=== PATIENT | male | born 1950 ===

== ENCOUNTER 2017-03-29 19:12 | Emergency (ER) | payer SELFPAY ==
[2017-03-29 19:26] VITALS: BP 162/105; PULSE 106; RESP 16; TEMP 98.2; O2SAT 100
[2017-03-29 20:11] LABS: BASO % 0.8 % (0.0-2.0); EOS # 0.1 K/uL (0.0-0.7); EOS % 1.6 % (0.0-4.0); HEMOGLOBIN 11.4 g/dL (12.0-18.0); LYMPH # 1.5 K/uL (1.0-4.3); LYMPH % 27.5 % (20.0-40.0); MEAN CELL VOLUME 92.4 fl (80.0-94.0); MEAN CORPUSCULAR HEMOGLOBIN 31.2 pg (27.0-31.0); MEAN CORPUSCULAR HGB CONC 33.8 g/dL (33.0-37.0); MONO # 0.5 K/uL (0.0-0.8); MONO % 8.4 % (0.0-10.0); NEUT # 3.4 K/uL (1.8-7.0); NEUT % 61.7 % (50.0-75.0); RBC 3.65 Mil/uL (4.40-5.90); RED CELL DISTRIBUTION WIDTH 14.1 % (11.5-14.5); WHITE BLOOD COUNT 5.5 K/uL (4.8-10.8)
[2017-03-29 20:24] LABS: ALB/GLOB RATIO 1.2 (1.0-2.1); ALBUMIN 4.6 g/dL (3.5-5.0); ALT/SGPT 32 U/L (21-72); AST/SGOT 28 U/L (17-59); BLOOD UREA NITROGEN 18 mg/dl (9-20); GFR AFRICAN-AMERICAN > 60; GFR NON-AFRICAN AMERICAN > 60; MAGNESIUM 1.9 MG/DL (1.6-2.3)
--- NOTE | 2017-03-29 22:00 | ED PDOC ---
HPI: Psych/Substance Abuse Time Seen by Provider: 03/29/17 19:26 Chief Complaint (Nursing): Alcohol Ingestion Chief Complaint (Provider): alcohol intoxication Past Medical History Vital Signs: Last Vital Signs Temp 98.2 F 03/29/17 19:25 Pulse 106 H 03/29/17 19:25 Resp 16 03/29/17 19:25 BP 162/105 H 03/29/17 19:25 Pulse Ox 100 03/29/17 19:25 - Allergies Allergies/Adverse Reactions: Allergies Allergy/AdvReac Type Severity Reaction Status Date / Time No Known Allergies Allergy Verified 11/10/16 20:52 - Laboratory Results Result Diagrams: 03/29/17 20:00 03/29/17 20:00 - ECG O2 Sat by Pulse Oximetry: 100 Disposition - Clinical Impression Clinical Impression: Alcohol abuse with intoxication - Disposition Referrals: Alcoholics Anonymous [Outside] Disposition: Routine/Home Disposition Time: 17:00 Condition: IMPROVED Instructions: Alcohol Intoxication (ED) Print Language: LATVIAN
== END 2017-03-30 06:05 | disposition home or self-care (01) ==
LOC: H.ER 19:12
DX: F10.129 Alcohol abuse with intoxication, unspecified (principal)
CPT/HCPCS: 80053; 83735; 84100; 85025; 96372; 99282; G0480; J1630; J2060

== ENCOUNTER 2018-01-07 21:45 | Emergency (ER) | payer MEDICARE ==
--- NOTE | 2018-01-07 22:22 | ED PDOC ---
HPI: Psych/Substance Abuse Time Seen by Provider: 01/07/18 22:01 Chief Complaint (Nursing): Alcohol Ingestion Chief Complaint (Provider): ETOH History Per: EMS Additional Complaint(s): 67 y/o male brought in by EMS for evaluation of acute alcohol intoxication. 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 Patient awake, slurred speech Past Medical History Reviewed: Historical Data, Nursing Documentation, Vital Signs Vital Signs: Last Vital Signs Temp 98.1 F 01/07/18 21:49 Pulse 104 H 01/07/18 21:49 Resp 20 01/07/18 21:49 BP 118/81 01/07/18 21:49 Pulse Ox 97 01/07/18 21:49 - Medical History PMH: No Chronic Diseases - Family History Family History: States: Unknown Family Hx - Allergies Allergies/Adverse Reactions: Allergies Allergy/AdvReac Type Severity Reaction Status Date / Time No Known Allergies Allergy Verified 01/07/18 21:49 Review of Systems ROS Statement: Except As Marked, All Systems Reviewed And Found Negative Physical Exam - Reviewed Nursing Documentation Reviewed: Yes Vital Signs Reviewed: Yes - Physical Exam Appears: Positive for: Well, Non-toxic, No Acute Distress Head Exam: Positive for: ATRAUMATIC, NORMAL INSPECTION, NORMOCEPHALIC Skin: Positive for: Normal Color - ECG O2 Sat by Pulse Oximetry: 97 Disposition - Disposition Forms: [place] (Taiwanese)
--- NOTE | 2018-01-07 23:00 | ED PDOC ---
HPI: Psych/Substance Abuse Time Seen by Provider: 01/07/18 22:01 Chief Complaint (Nursing): Alcohol Ingestion Chief Complaint (Provider): etoh History Per: EMS Additional Complaint(s): 76 y/o male brought in by EMS for alcohol intoxication. Patient well known to ED and provider with multiple visits for same. Past Medical History Reviewed: Historical Data, Nursing Documentation, Vital Signs Vital Signs: Last Vital Signs Temp 98.1 F 01/07/18 21:49 Pulse 104 H 01/07/18 21:49 Resp 20 01/07/18 21:49 BP 118/81 01/07/18 21:49 Pulse Ox 97 01/07/18 21:49 - Family History Family History: States: Unknown Family Hx - Home Medications Home Medications: Ambulatory Orders Medication Instructions Recorded No Known Home Med 11/02/17 - Allergies Allergies/Adverse Reactions: Allergies Allergy/AdvReac Type Severity Reaction Status Date / Time No Known Allergies Allergy Verified 01/11/18 23:13 Review of Systems ROS Statement: Except As Marked, All Systems Reviewed And Found Negative Physical Exam - Reviewed Nursing Documentation Reviewed: Yes Vital Signs Reviewed: Yes - Physical Exam Appears: Positive for: Well, Non-toxic, Uncomfortable (agitated, yelling) Head Exam: Positive for: ATRAUMATIC, NORMAL INSPECTION, NORMOCEPHALIC Skin: Positive for: Normal Color Eye Exam: Positive for: Normal appearance, Other (chronic left eye deformity) ENT: Positive for: Normal ENT Inspection Cardiovascular/Chest: Positive for: Regular Rate, Rhythm Respiratory: Positive for: Normal Breath Sounds Gastrointestinal/Abdominal: Positive for: Normal Exam Back: Positive for: Normal Inspection Extremity: Positive for: Normal ROM Neurologic/Psych: Positive for: Alert, Oriented (x3) - ECG O2 Sat by Pulse Oximetry: 97 - Progress ED Course And Treament: Patient agitated, attempting to get out of bed with unsteady gait. Patient restrained and medicated with Ativan for acute agitation/safety 01/08/18 00:00 Patient sleeping; no distress 1:30 Patient sleeping; no distress 3:00 Patient sleeping; no distress 4:30 Patient sleeping; no distress 6:00 Patient awake, alert, oriented x3. Ambulating steady gait Stable for discharge Disposition - Clinical Impression Clinical Impression: Alcohol abuse with intoxication - Patient ED Disposition Is Patient to be Admitted: No - Disposition Disposition: Routine/Home Disposition Time: 06:00 Condition: IMPROVED Instructions: Alcohol Abuse and Alcoholism (DC)
[2018-01-08 05:24] VITALS: O2SAT 97
[2018-01-08 07:02] VITALS: BP 111/62; PULSE 79; RESP 17; TEMP 97.9
== END 2018-01-08 06:45 | disposition home or self-care (01) ==
LOC: EDBD 21:45 → H.ER 21:45
DX: F10.129 Alcohol abuse with intoxication, unspecified (principal)
CPT/HCPCS: 82948; 96372; 99285; J2060

== ENCOUNTER 2018-01-11 23:07 | Emergency (ER) | payer MEDICARE, MEDICAID ==
[2018-01-11 23:07] VITALS: BMI 25.0
[2018-01-11 23:15] VITALS: RESP 16; O2SAT 98
--- NOTE | 2018-01-11 23:36 | ED PDOC ---
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 Unable to obtain history due to patient's intoxication state. PMD: non provided Past Medical History Reviewed: Historical Data, Nursing Documentation, Vital Signs Vital Signs: Last Vital Signs Temp 98.0 F 01/11/18 23:13 Pulse 114 H 01/11/18 23:13 Resp 16 01/11/18 23:13 BP 134/72 01/11/18 23:13 Pulse Ox 98 01/11/18 23:13 - Medical History PMH: Diabetes, Hypercholesterolemia - Surgical History Surgical History: No Surg Hx - Family History Family History: States: Unknown Family Hx - Home Medications Home Medications: Ambulatory Orders Medication Instructions Recorded RX: No Known Home Med 11/02/17 - Allergies Allergies/Adverse Reactions: Allergies Allergy/AdvReac Type Severity Reaction Status Date / Time No Known Allergies Allergy Verified 01/11/18 23:13 Review of Systems Review Of Systems: ROS cannot be obtained secondary to pt's inabilty to answer questions. Physical Exam - Reviewed Nursing Documentation Reviewed: Yes Vital Signs Reviewed: Yes - Physical Exam Appears: Positive for: No Acute Distress (intoxicated) Head Exam: Positive for: ATRAUMATIC, NORMOCEPHALIC Skin: Positive for: Warm, Dry Eye Exam: Positive for: Other (Left orbit consistent with pthisis bulbi) ENT: Negative for: Pharyngeal Erythema, Tonsillar Exudate Neck: Positive for: Painless ROM, Supple Cardiovascular/Chest: Positive for: Regular Rate, Rhythm. Negative for: Murmur Respiratory: Positive for: Normal Breath Sounds. Negative for: Respiratory Distress Gastrointestinal/Abdominal: Positive for: Soft. Negative for: Tenderness Back: Positive for: Normal Inspection. Negative for: Decreased ROM Extremity: Positive for: Normal ROM. Negative for: Deformity Lymphatic: Negative for: Adenopathy Neurologic/Psych: Positive for: Other (Sleepy, slurred speech and speaks nonsense statments). Negative for: Motor/Sensory Deficits - ECG O2 Sat by Pulse Oximetry: 98 (RA) Pulse Ox Interpretation: Normal Medical Decision Making Medical Decision Making: Time: 2320 Initial Impression: alcohol intoxication Initial Plan: --Alcohol serum 0000 Patient endorsed by me to Dr. Marrero, pending sobriety. Scribe Attestation: Documented by Shandra Blair, acting as a scribe for Leilani Henriquez MD. Provider Scribe Attestation: All medical record entries made by the Scribe were at my direction and personally dictated by me. I have reviewed the chart and agree that the record accurately reflects my personal performance of the history, physical exam, medical decision making, and the department course for this patient. I have also personally directed, reviewed, and agree with the discharge instructions and disposition. Disposition - Clinical Impression Clinical Impression: Alcohol intoxication - Disposition Disposition: Transfer of Care Disposition Time: 00:00 Condition: STABLE Patient Signed Over To: Trav Marrero Handoff Comments: Pending sobriety
--- NOTE | 2018-01-12 00:05 | ED PDOC ---
- ECG O2 Sat by Pulse Oximetry: 98 (RA) Pulse Ox Interpretation: Normal Medical Decision Making Medical Decision Makin Patient endorsed to me by Dr. Henriquez, pending sobriety. 6 am pt awake alert, stable gait, in no distress tolerated po stable for dc instructed on outpt follow up Scribe Attestation: Documented by Shandra Blair, acting as a scribe for Bonilla MD. Provider Scribe Attestation: All medical record entries made by the Scribe were at my direction and personally dictated by me. I have reviewed the chart and agree that the record accurately reflects my personal performance of the history, physical exam, medical decision making, and the department course for this patient. I have also personally directed, reviewed, and agree with the discharge instructions and disposition. Disposition - Clinical Impression Clinical Impression: Alcohol intoxication - POA Present On Arrival: None - Disposition Disposition: Routine/Home Disposition Time: 06:00 Condition: IMPROVED Additional Instructions: follow up with your primary doctor in 1-2 days return to the ED with any worsening or concerning symptoms Instructions: Alcohol Abuse and Alcoholism (DC) Forms: [facility] (Georgian)
[2018-01-12 06:16] VITALS: BP 134/70; PULSE 82; TEMP 98.1
== END 2018-01-12 06:16 | disposition home or self-care (01) ==
LOC: H.ER 23:07
DX: F10.129 Alcohol abuse with intoxication, unspecified (principal); E11.9 Type 2 diabetes mellitus without complications; E78.00 Pure hypercholesterolemia, unspecified; Y90.6 Blood alcohol level of 120-199 mg/100 ml
CPT/HCPCS: 82948; G0480

== ENCOUNTER 2018-01-13 20:34 | Emergency (ER) | payer MEDICARE, MEDICAID ==
[2018-01-13 20:35] VITALS: BMI 25.0
[2018-01-13 20:47] VITALS: O2SAT 100
--- NOTE | 2018-01-13 23:40 | ED PDOC ---
HPI: Psych/Substance Abuse Time Seen by Provider: 01/13/18 21:24 Chief Complaint (Nursing): Alcohol Ingestion Chief Complaint (Provider): Alcohol Intoxication Additional Complaint(s): 76 year old male well-known to the ED with PMH of alcohol abuse presents via EMS after being found on the street with abrasions to face, head, and hands. Unable to obtain history from patient due to patient's intoxication state. Past Medical History Reviewed: Historical Data, Nursing Documentation, Vital Signs Vital Signs: Last Vital Signs Temp 97 F L 01/13/18 20:45 Pulse 93 H 01/13/18 20:45 Resp 20 01/13/18 20:45 BP 138/100 H 01/13/18 20:45 Pulse Ox 100 01/13/18 20:45 - Medical History PMH: Diabetes, Hypercholesterolemia - Family History Family History: States: Unknown Family Hx - Home Medications Home Medications: Ambulatory Orders Medication Instructions Recorded No Known Home Med 11/02/17 - Allergies Allergies/Adverse Reactions: Allergies Allergy/AdvReac Type Severity Reaction Status Date / Time No Known Allergies Allergy Verified 01/11/18 23:13 Review of Systems Review Of Systems: ROS cannot be obtained secondary to pt's inabilty to answer questions. Physical Exam - Reviewed Nursing Documentation Reviewed: Yes Vital Signs Reviewed: Yes - Physical Exam Appears: Positive for: No Acute Distress (intoxicated), Uncomfortable (yelling, agitated, attempting to leave stretcher) Head Exam: Negative for: ATRAUMATIC (abrasion and swelling to left forehead) Eye Exam: Positive for: Other (chronic left eye deformity) Neck: Positive for: Normal, Painless ROM Cardiovascular/Chest: Positive for: Regular Rate, Rhythm Respiratory: Positive for: CNT, Normal Breath Sounds Pulses-Radial (L): 2+ Pulses-Radial (R): 2+ Gastrointestinal/Abdominal: Positive for: Normal Exam Back: Positive for: Normal Inspection Extremity: Positive for: Normal ROM, Other (abrasion right hand ) Neurologic/Psych: Positive for: Gait (unsteady), Other (intoxicated, slurred speech, speaking nonsense statement) - ECG O2 Sat by Pulse Oximetry: 100 Medical Decision Making Medical Decision Makin:24 Initial Plan: * Head CT * Maxillofacial CT * Cervical Spine CT * Glucose, POC * Alcohol level * 1:1 21:35 Pt attempting to leave stretcher, is agitated and yelling at staff. Will give Ativan 2mg IVP and put in restraints for patient's own safety to prevent falls. Glucose 77 Alcohol 254 24:00 Will endorse pt to HARRY Bui. Pt is stable, sleeping soundly and comfortably. Disposition - Clinical Impression Clinical Impression: Alcohol intoxication - Disposition Disposition: Transfer of Care Disposition Time: 23:00 Condition: STABLE Patient Signed Over To: Analilia Becker Handoff Comments: Pending CT, Sobriety
--- NOTE | 2018-01-14 03:12 | ED PDOC ---
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 Acutely agitated, yelling Patient given Haldol IM for persistent agitation/safety CT SCAN OF THE BRAIN WITHOUT IV CONTRAST CLINICAL INDICATION: Trauma. TECHNIQUE: Axial and reformatted sagittal and coronal images of the brain obtained without IV contrast administration. Normal size of the ventricles and extra-axial spaces for the patient's age. Normal white matter tracts of the supratentorial brain. Normal basal ganglia and thalami. Normal brainstem. Normal cerebellum. There is no demonstrated extra-axial, intraparenchymal, or intraventricular hemorrhage. There are no findings of an acute ischemic infarction. Normal calvarium. There is no demonstrated fracture. Normal soft tissue structures. Normal visualized paranasal sinuses. Chronic deformity of the left globe. IMPRESSION: Normal unenhanced CT scan of the brain. Chronic deformity of the left globe. CT scan of the facial bones. Indication: Trauma. Technique: Axial CT scan images without contrast. Reformatted coronal and sagittal images. Findings: Chronic deformity of the right lamina papyraceous. Mild chronic herniation of right orbital fat into the right ethmoid air cells. No muscular entrapment is seen. Normal bilateral maxillary bones. Normal bilateral maxillary sinuses. Normal bilateral frontozygomatic arches. Normal bilateral zygomatic temporal arches. Normal anterior nasal spine. Normal soft tissue structures. There is no demonstrated fracture. Normal visualized frontal, ethmoidal and sphenoid sinuses. Chronic deformities of the nasal bones. Impression: Chronic deformity of the right lamina papyracea. No acute traumatic pathology. CT scan of the cervical spine without contrast. Indication: Trauma. Pain. Technique: Axial CT scan images without contrast. Reformatted coronal and sagittal images. Findings: There are diffuse spondylotic changes. Findings are demonstrated by disc space narrowing, osteophyte formation and degenerative endplate changes. Facet joint arthropathy is noted. No fracture or dislocation is seen. No aggressive bone lesion is noted. Moderate multilevel degenerative disc disease most prominent from C3-C7 level. Impression: Spondylosis. Multilevel facet joint arthropathy. No acute bone pathology. 1:30 Patient sleeping; no distress 3:00 Patient sleeping; no distress 4:30 Patient sleeping; no distress 4:50 Repeat Accucheck 65 Patient woken up and given juice by RN <Analilia Becker - Last Filed: 01/14/18 04:43> Medical Decision Making Medical Decision Makin Patient awake, alert, steady gait, clinically sober <Jesse Madrigal - Last Filed: 01/14/18 06:15> Disposition - POA Present On Arrival: None - Disposition Disposition: Transfer of Care Disposition Time: 05:00 Patient Signed Over To: Jesse Madrigal <Analilia Becker - Last Filed: 01/14/18 04:43> - POA Present On Arrival: None - Disposition Disposition: Routine/Home Disposition Time: 06:14 <Jesse Madrigal - Last Filed: 01/14/18 06:15> - Clinical Impression Clinical Impression: Alcohol intoxication - Disposition Referrals: Alcoholics Anonymous [Outside] Condition: STABLE Instructions: Alcohol Abuse and Alcoholism (DC) Forms: [facility] (Mosotho) Print Language: TURKISH
[2018-01-14 07:39] VITALS: BP 128/88; PULSE 81; RESP 18; TEMP 97.9
--- NOTE | 2018-01-14 09:07 | CT ---
Date of service: 01/14/2018 PROCEDURE: CT HEAD WITHOUT CONTRAST. HISTORY: headache COMPARISON: None available. TECHNIQUE: Axial computed tomography images were obtained through the head/brain without intravenous contrast. Radiation dose: Total exam DLP = 840.58 mGy-cm. This CT exam was performed using one or more of the following dose reduction techniques: Automated exposure control, adjustment of the mA and/or kV according to patient size, and/or use of iterative reconstruction technique. FINDINGS: HEMORRHAGE: No intracranial hemorrhage. BRAIN: No mass effect or edema. Mild to moderate periventricular white matter lucency consistent with chronic microvascular ischemic change. Minimal age-appropriate diffuse cerebral atrophy. No evidence of acute infarct. Probable old lacunar infarct right cerebral peduncle. Small old lacunar infarct left anterior limb internal capsule. Old lacunar infarct right thalamus. VENTRICLES: No ventriculomegaly. No midline shift. Incidental cavum septum pellucidum. CALVARIUM: Unremarkable. PARANASAL SINUSES: Unremarkable as visualized. No significant inflammatory changes. MASTOID AIR CELLS: Unremarkable as visualized. No inflammatory changes. OTHER FINDINGS: Nasal deformity likely posttraumatic. No acute fracture. Left phthisis bulbi. IMPRESSION: No intracranial mass, hemorrhage or evidence of acute infarct. Age-appropriate involutional change. Old left basal ganglia lacunar infarct. Old right thalamic lacunar infarct. Probable old right cerebral peduncle lacunar infarct. The preliminary findings for this examination were reported by [facility] at 2:39 a.m. on 01/14/2018. There is concurrence of this report with the preliminary findings.
--- NOTE | 2018-01-14 09:13 | CT ---
Date of service: 01/14/2018 PROCEDURE: CT Cervical Spine without contrast HISTORY: neck pain COMPARISON: None available. TECHNIQUE: Axial computed tomography images were obtained of the cervical spine without the use of intravenous contrast. Coronal and sagittal reformatted images were created and reviewed. Radiation dose: Total exam DLP = 372.02 mGy-cm. This CT exam was performed using one or more of the following dose reduction techniques: Automated exposure control, adjustment of the mA and/or kV according to patient size, and/or use of iterative reconstruction technique. FINDINGS: VERTEBRAE: Vertebral bodies maintained in height. Normal alignment maintained. The atlantoaxial articulation and odontoid process are intact. DISCS/SPINAL CANAL/NEURAL FORAMINA: Mild narrowing of the C3-4 intervertebral disc space associated with degenerative facet arthropathy, right greater than left. There is bilateral C3-4 neural foraminal stenosis noted, right greater than left. There is unilateral left C4-5 neural foraminal stenosis. No significant central spinal stenosis. Remaining intervertebral disc spaces are maintained in height. PARASPINAL SOFT TISSUES: Unremarkable. OTHER FINDINGS: None. IMPRESSION: No fracture/dislocation. Degenerative disc disease and facet arthropathy most prominently at C3-4. Foraminal stenoses as above. The preliminary findings for this examination were reported by [facility] at 2:43 a.m. on 01/14/2018. There is concurrence of this report with the preliminary findings.
--- NOTE | 2018-01-14 09:54 | CT ---
Date of service: 01/14/2018 PROCEDURE: CT MAXILLOFACIAL BONES WITHOUT CONTRAST HISTORY: facial injury COMPARISON: None available. TECHNIQUE: Contiguous axial CT images of the maxillofacial bones were obtained. Coronal and sagittal reformats were generated. Radiation dose: Total exam DLP = 759.58 mGy-cm. This CT exam was performed using one or more of the following dose reduction techniques: Automated exposure control, adjustment of the mA and/or kV according to patient size, and/or use of iterative reconstruction technique. FINDINGS: NASAL BONES: Nasal deformity with questionable acute fracture at nasal tip. Correlate clinically. Probable old fracture base of left nasal bone. Nasal deviation towards the left. Deviated nasal septum towards the right. ORBITS: Small depressed right lamina papyracea fracture likely old. No orbital floor fracture. PARANASAL SINUSES/ MASTOIDS: Minimal chronic ethmoid and bilateral maxillary sinusitis. MAXILLA: Unremarkable. MANDIBLE/ TEMPOROMANDIBULAR JOINTS: Unremarkable. SKULL BASE: Unremarkable. TEMPORAL BONES: Middle ears and mastoid grossly unremarkable. OTHER FINDINGS: None. IMPRESSION: Nasal tip fracture of indeterminate age. Correlate clinically. Probable old left nasal fracture. Probable old depressed right lamina papyracea fracture. No other acute abnormality. The preliminary findings for this examination were reported by [facility] at 3:01 a.m. on 01/14/2018. There is concurrence of this report with the preliminary findings.
== END 2018-01-14 06:35 | disposition home or self-care (01) ==
LOC: H.ER 20:34
DX: F10.129 Alcohol abuse with intoxication, unspecified (principal); S00.81XA Abrasion of other part of head, initial encounter; W19.XXXA Unspecified fall, initial encounter; Y92.410 Unspecified street and highway as the place of occurrence of the external cause; E11.9 Type 2 diabetes mellitus without complications; E78.00 Pure hypercholesterolemia, unspecified; Z86.73 Personal history of transient ischemic attack (TIA), and cerebral infarction without residual deficits
CPT/HCPCS: 70450; 70486; 72125; 82948; 96374; 99284; G0480; J2060

== ENCOUNTER 2018-02-05 14:24 | Emergency (ER) | payer MEDICARE, MEDICAID ==
[2018-02-05 14:26] VITALS: BMI 25.0
--- NOTE | 2018-02-05 14:44 | ED PDOC ---
HPI: Trauma/Fall - HPI Time Seen by Provider: 02/05/18 14:35 Chief Complaint (Nursing): Trauma Chief Complaint (Provider): Trauma History Per: Patient, EMS History/Exam Limitations: no limitations Onset/Duration Of Symptoms: Mins Additional Complaint(s): 76 year old male, with a past medical history of alcohol abuse, presents to the ED via EMS after a witnessed fall in the lobby of his apartment building. Witness is unavailable. Witness described to EMS that patient fell hitting the back of his head and denies LOC. Patient states he wasn't drinking. Denies pa in, headache, dizziness, neck pain, or back pain. PMD: none provided Past Medical History Reviewed: Historical Data, Nursing Documentation, Vital Signs Vital Signs: Last Vital Signs Temp 97.8 F 02/05/18 14:27 Pulse 116 H 02/05/18 14:27 Resp 20 02/05/18 14:27 BP 167/92 H 02/05/18 14:27 Pulse Ox 100 02/05/18 14:27 - Medical History PMH: Diabetes, Hypercholesterolemia - Surgical History Surgical History: No Surg Hx - Family History Family History: States: Unknown Family Hx - Social History Alcohol: Other (Alcohol abuse) - Home Medications Home Medications: Ambulatory Orders Medication Instructions Recorded No Known Home Med 11/02/17 - Allergies Allergies/Adverse Reactions: Allergies Allergy/AdvReac Type Severity Reaction Status Date / Time No Known Allergies Allergy Verified 01/11/18 23:13 Review of Systems ROS Statement: Except As Marked, All Systems Reviewed And Found Negative Musculoskeletal: Negative for: Neck Pain, Back Pain, Other (LOC) Neurological: Negative for: Headache, Dizziness Physical Exam - Reviewed Nursing Documentation Reviewed: Yes Vital Signs Reviewed: Yes - Physical Exam Appears: Positive for: Non-toxic, No Acute Distress Head Exam: Positive for: ATRAUMATIC, NORMOCEPHALIC Skin: Positive for: Normal Color, Warm, Dry Eye Exam: Positive for: Other (Left eye enucleated) Neck: Positive for: Normal (nontender), Supple Cardiovascular/Chest: Positive for: Regular Rate, Rhythm Respiratory: Positive for: Normal Breath Sounds. Negative for: Wheezing, Respiratory Distress Back: Negative for: Vertebral Tenderness Extremity: Negative for: Tenderness (hip), Deformity (hip) Neurologic/Psych: Positive for: Other (sleeping but arousable). Negative for: Motor/Sensory Deficits (focal deficits) - Laboratory Results Result Diagrams: 02/05/18 15:10 02/05/18 15:10 - ECG O2 Sat by Pulse Oximetry: 100 (RA) Pulse Ox Interpretation: Normal - Progress Re-evaluation Time: 17:55 Condition: Improved (awake alert No focal neuro deficits) Medical Decision Making Medical Decision Making: Initial Plan: --CT Head --Alcohol serum --CMP --CBC Scribe Attestation: Documented by Dell Carmen acting as a scribe for Fabricio Mcgill MD. Provider Scribe Attestation: All medical record entries made by the Scribe were at my direction and personall y dictated by me. I have reviewed the chart and agree that the record accurately reflects my personal performance of the history, physical exam, medical decision making, and the department course for this patient. I have also personally directed, reviewed, and agree with the discharge instructions and disposition. Disposition - Clinical Impression Clinical Impression: Intoxication, Head injury - Patient ED Disposition Is Patient to be Admitted: No Counseled Patient/Family Regarding: Studies Performed, Diagnosis, Need For Followup - Disposition Referrals: [facility] [Outside] Disposition: Routine/Home Disposition Time: 17:57 Condition: FAIR Instructions: Minor Head Injury Forms: [employer] (Citizen [place]) Print Language: MALDIVIAN
[2018-02-05 15:27] LABS: BASO # 0.1 K/uL (0.0-0.2); BASO % 1.1 % (0.0-2.0); EOS # 0.1 K/uL (0.0-0.7); EOS % 1.2 % (0.0-4.0); HEMOGLOBIN 11.6 g/dL (12.0-18.0); LYMPH # 1.9 K/uL (1.0-4.3); LYMPH % 25.1 % (20.0-40.0); MEAN CELL VOLUME 92.5 fl (80.0-94.0); MEAN CORPUSCULAR HEMOGLOBIN 30.2 pg (27.0-31.0); MEAN CORPUSCULAR HGB CONC 32.7 g/dL (33.0-37.0); MONO # 0.6 K/uL (0.0-0.8); MONO % 7.4 % (0.0-10.0); NEUT # 4.9 K/uL (1.8-7.0); NEUT % 65.2 % (50.0-75.0); RBC 3.83 Mil/uL (4.40-5.90); RED CELL DISTRIBUTION WIDTH 14.7 % (11.5-14.5); WHITE BLOOD COUNT 7.5 K/uL (4.8-10.8)
[2018-02-05 15:36] LABS: ALBUMIN 4.7 g/dL (3.5-5.0); AST/SGOT 35 U/L (17-59); BLOOD UREA NITROGEN 23 mg/dl (9-20); GFR NON-AFRICAN AMERICAN 59
[2018-02-05 15:37] LABS: ALT/SGPT 23 U/L (21-72)
--- NOTE | 2018-02-05 16:10 | CT ---
Date of service: 02/05/2018 PROCEDURE: CT HEAD WITHOUT CONTRAST. HISTORY: r/o bleed COMPARISON: 01/14/2018 10/07/2016, serial CT scans of the head TECHNIQUE: Axial computed tomography images were obtained through the head/brain without intravenous contrast. Supplemental Coronal and Sagittal projections created and reviewed. Radiation dose: Total exam DLP = 817.51 mGy-cm. This CT exam was performed using one or more of the following dose reduction techniques: Automated exposure control, adjustment of the mA and/or kV according to patient size, and/or use of iterative reconstruction technique. FINDINGS: HEMORRHAGE: No intracranial hemorrhage. BRAIN: No mass effect or edema. Cortical and cerebellar atrophy, periventricular small vessel disease. 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 VENTRICLES: Unremarkable. No hydrocephalus. CALVARIUM: Unremarkable. PARANASAL SINUSES: Unremarkable as visualized. No significant inflammatory changes. MASTOID AIR CELLS: Unremarkable as visualized. No inflammatory changes. OTHER FINDINGS: Evidence of old bilateral nasal bone fractures. IMPRESSION: No acute intracranial abnormalities. No significant findings to account for the clinical presentation. No significant interval change compared to the prior examination(s).
[2018-02-05 18:41] VITALS: BP 124/79; PULSE 100; RESP 14; TEMP 98.9; O2SAT 99
== END 2018-02-05 18:24 | disposition home or self-care (01) ==
LOC: H.ER 14:24
DX: F10.10 Alcohol abuse, uncomplicated (principal); S09.90XA Unspecified injury of head, initial encounter; W19.XXXA Unspecified fall, initial encounter; Y92.89 Other specified places as the place of occurrence of the external cause; E11.9 Type 2 diabetes mellitus without complications; E78.00 Pure hypercholesterolemia, unspecified
CPT/HCPCS: 70450; 80053; 85025; 99285; G0480

== ENCOUNTER 2018-02-06 18:13 | Emergency (ER) | payer MEDICARE, MEDICAID ==
[2018-02-06 18:13] VITALS: BMI 25.0
[2018-02-06 18:19] VITALS: RESP 16; O2SAT 100
--- NOTE | 2018-02-06 22:16 | ED PDOC ---
HPI: Psych/Substance Abuse Time Seen by Provider: 02/06/18 18:32 Chief Complaint (Nursing): Alcohol Ingestion Chief Complaint (Provider): Alcohol Ingestion History Per: Patient, EMS History/Exam Limitations: intoxication Onset/Duration Of Symptoms: Hrs Current Symptoms Are (Timing): Still Present Additional Complaint(s): Katelyn Ortega is a 76 year old male with a past medical history of hypertension, hypercholesterolemia, and diabetes who is well known to this ED for frequent visits and was brought to the ED today by EMS for evaluation of alcohol intoxication. Patient is singing in the ED and is ambulatory but unsteady on his feet. He admits to drinking and denies any pain, injury, or drug use. PMD: none provided Past Medical History Reviewed: Historical Data, Nursing Documentation, Vital Signs Vital Signs: Last Vital Signs Temp 97.8 F 02/06/18 18:17 Pulse 86 02/06/18 18:17 Resp 16 02/06/18 18:17 BP 149/68 02/06/18 18:17 Pulse Ox 100 02/06/18 18:17 - Medical History PMH: Diabetes, HTN, Hypercholesterolemia - Surgical History Surgical History: No Surg Hx - Family History Family History: States: Unknown Family Hx - Social History Current smoker - smoking cessation education provided: Yes Alcohol: Social Drugs: Denies - Home Medications Home Medications: Ambulatory Orders Medication Instructions Recorded RX: No Known Home Med 11/02/17 - Allergies Allergies/Adverse Reactions: Allergies Allergy/AdvReac Type Severity Reaction Status Date / Time No Known Allergies Allergy Verified 02/06/18 18:17 Review of Systems ROS Statement: Except As Marked, All Systems Reviewed And Found Negative Constitutional: Positive for: Other (patient denies any medical problems ) Physical Exam - Reviewed Nursing Documentation Reviewed: Yes Vital Signs Reviewed: Yes - Physical Exam Appears: Positive for: Non-toxic, No Acute Distress (intoxicated appearing) Head Exam: Positive for: ATRAUMATIC, NORMAL INSPECTION, NORMOCEPHALIC Skin: Positive for: Normal Color, Warm, DRY Eye Exam: Positive for: Normal appearance, EOMI, PERRL ENT: Positive for: Normal ENT Inspection Neck: Positive for: Normal, Painless ROM Cardiovascular/Chest: Positive for: Regular Rate, Rhythm. Negative for: Murmur Respiratory: Positive for: Normal Breath Sounds. Negative for: Respiratory Distress Gastrointestinal/Abdominal: Positive for: Normal Exam, Soft. Negative for: Tenderness Back: Positive for: Normal Inspection Extremity: Positive for: Normal ROM. Negative for: Deformity, Swelling Neurologic/Psych: Positive for: Alert, Oriented (unable to give date but can give year, laughs when asked who the president is), Gait (unsteady). Negative for: Motor/Sensory Deficits - ECG O2 Sat by Pulse Oximetry: 100 (RA) Pulse Ox Interpretation: Normal Medical Decision Making Medical Decision Making: Time: 19:25 A/P: repeat visit due to intoxication --Vitals are within normal limits --No signs of injury --Pending sobriety --Patient frequently requires medical sedation due to attempts to abscond while unstable --Will sedate when necessary 1200 Pt comfortable. Required medical sedation following becoming aggitated but has been sleeping comfortably with stable vitals. Pt to be signed out to Dr. Hall. Scribe Attestation: Documented by Nivia Saavedra, acting as a scribe for Anaya Haji MD. Provider Scribe Attestation: All medical record entries made by the Scribe were at my direction and personally dictated by me. I have reviewed the chart and agree that the record accurately reflects my personal performance of the history, physical exam, medical decision making, and the department course for this patient. I have also personally directed, reviewed, and agree with the discharge instructions and disposition. Disposition - Clinical Impression Clinical Impression: Alcohol intolerance - Patient ED Disposition Is Patient to be Admitted: No - Disposition Disposition: Transfer of Care Disposition Time: 00:06 (Dr. Hall pending sobriety) Condition: STABLE Forms: [employer] (Anguillan)
--- NOTE | 2018-02-07 00:12 | ED PDOC ---
- ECG O2 Sat by Pulse Oximetry: 100 (RA) Medical Decision Making Medical Decision Makin:00 Patient is signed out to me by Anaya Haji MD pending sobriety. 4:18 Patient is clinically sober for discharge. Diagnosis is alcohol intoxication. Return precautions provided. Scribe Attestation: Documented byAnaya Pickett, acting as a scribe for Claude Hall MD. Provider Scribe Attestation: All medical record entries made by the Scribe were at my direction and personally dictated by me. I have reviewed the chart and agree that the record accurately reflects my personal performance of the history, physical exam, medical decision making, and the department course for this patient. I have also personally directed, reviewed, and agree with the discharge instructions and disposition. Disposition - Clinical Impression Clinical Impression: Alcohol abuse with intoxication - POA Present On Arrival: None - Disposition Disposition: Routine/Home Disposition Time: 04:18 Condition: STABLE Instructions: Alcohol Abuse and Alcoholism (DC) Forms: [employer] (Vietnamese) Print Language: ARMENIAN
[2018-02-07 07:46] VITALS: BP 136/64; PULSE 90; TEMP 98.2
== END 2018-02-07 07:48 | disposition home or self-care (01) ==
LOC: H.ER 18:13
DX: F10.129 Alcohol abuse with intoxication, unspecified (principal); E11.9 Type 2 diabetes mellitus without complications; I10 Essential (primary) hypertension; F17.200 Nicotine dependence, unspecified, uncomplicated
CPT/HCPCS: 82948; 96372; 99283; J1630; J2060

== ENCOUNTER 2018-05-18 19:05 | Emergency (ER) | payer MEDICARE, MEDICAID ==
[2018-05-18 19:05] VITALS: BMI 25.0
[2018-05-18 19:42] VITALS: RESP 16
--- NOTE | 2018-05-18 21:15 | ED PDOC ---
HPI: Psych/Substance Abuse Time Seen by Provider: 05/18/18 19:16 Chief Complaint (Nursing): Alcohol Ingestion Chief Complaint (Provider): Alcohol Ingestion ED Caveat: Intoxicated History Per: Patient, EMS History/Exam Limitations: intoxication Current Symptoms Are (Timing): Still Present Suicide/Self Injury Attempted (Context): None Modifying Factor(s): Alcohol Additional Complaint(s): 76 year old male with a past medical history of hypertension, hypercholesterolemia, and diabetes who is well known to this ED for frequent visits and was brought to the ED today by EMS for evaluation of alcohol intoxication. He admits to drinking and denies any pain, injury, or drug use. PMD: none provided Past Medical History Reviewed: Historical Data, Nursing Documentation, Vital Signs Vital Signs: Last Vital Signs Temp 97.4 F L 05/18/18 19:41 Pulse 84 05/18/18 19:41 Resp 16 05/18/18 19:41 BP 148/80 05/18/18 19:41 Pulse Ox 99 05/18/18 19:41 - Medical History PMH: Diabetes, HTN, Hypercholesterolemia - Surgical History Surgical History: No Surg Hx - Family History Family History: States: Unknown Family Hx - Home Medications Home Medications: Ambulatory Orders Medication Instructions Recorded No Known Home Med 11/02/17 - Allergies Allergies/Adverse Reactions: Allergies Allergy/AdvReac Type Severity Reaction Status Date / Time No Known Allergies Allergy Verified 05/18/18 19:08 Review of Systems ROS Statement: Except As Marked, All Systems Reviewed And Found Negative Physical Exam - Reviewed Nursing Documentation Reviewed: Yes Vital Signs Reviewed: Yes - Physical Exam Appears: Positive for: No Acute Distress Head Exam: Positive for: ATRAUMATIC, NORMAL INSPECTION, NORMOCEPHALIC Skin: Positive for: Normal Color, Warm, Dry Eye Exam: Positive for: Normal appearance (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 Negative for: Murmur Respiratory: Positive for: Normal Breath Sounds. Negative for: Wheezing, Respiratory Distress Gastrointestinal/Abdominal: Positive for: Normal Exam, Soft. Negative for: Tenderness Back: Positive for: Normal Inspection. Negative for: L CVA Tenderness, R CVA Tenderness Extremity: Positive for: Normal ROM (x 4). Negative for: Deformity Neurological/Psych: Positive for: Gait (unsteady), Other (slurred speech). Negative for: Motor/Sensory Deficits - ECG O2 Sat by Pulse Oximetry: 99 (RA) Pulse Ox Interpretation: Normal Medical Decision Making Medical Decision Makin:22 Impression: 76 year old male for evaluation of public intoxication Initial Plan: --Accucheck --Alcohol serum At 6AM pt clinically sober for discharge Scribe Attestation: Documented by Alison Pollack, acting as a scribe for Claude Hall MD. Provider Scribe Attestation: All medical record entries made by the Scribe were at my direction and personally dictated by me. I have reviewed the chart and agree that the record accurately reflects my personal performance of the history, physical exam, medical decision making, and the department course for this patient. I have also personally directed, reviewed, and agree with the discharge instructions and disposition. Disposition - Clinical Impression Clinical Impression: Alcohol abuse with intoxication - Patient ED Disposition Is Patient to be Admitted: No - Disposition Disposition: Routine/Home Disposition Time: 06:00 Condition: STABLE Instructions: Effects of Alcohol on Your Health Forms: [employer] (Spanish) Print Language: GREENLANDIC
[2018-05-19 05:46] VITALS: BP 138/75; PULSE 95; TEMP 98.6
[2018-05-19 05:55] VITALS: O2SAT 99
== END 2018-05-19 06:05 | disposition home or self-care (01) ==
LOC: H.ER 19:05
DX: F10.129 Alcohol abuse with intoxication, unspecified (principal); Y90.6 Blood alcohol level of 120-199 mg/100 ml; E11.9 Type 2 diabetes mellitus without complications; E78.00 Pure hypercholesterolemia, unspecified; I10 Essential (primary) hypertension
CPT/HCPCS: 82948; 99284; G0480

== ENCOUNTER 2018-06-12 20:12 | Emergency (ER) | payer MEDICARE, MEDICAID ==
[2018-06-12 20:12] VITALS: BMI 25.0
[2018-06-12 20:18] VITALS: TEMP 97.2
--- NOTE | 2018-06-12 21:17 | ED PDOC ---
HPI: Psych/Substance Abuse Time Seen by Provider: 06/12/18 20:20 Chief Complaint (Nursing): Trauma Chief Complaint (Provider): Trauma History Per: Patient, EMS History/Exam Limitations: no limitations Onset/Duration Of Symptoms: Mins (just prior to arrival) Current Symptoms Are (Timing): Still Present Modifying Factor(s): Alcohol Severity: Moderate Additional Complaint(s): 76 year old male with a past medical history of hypertension, hypercholesterolemia, and diabetes who is well known to this ED for frequent visits and was brought to the ED today by EMS for evaluation of alcohol intoxication. Patient was found after he fell on his face. Patient admits to drinking and denies drug use. PMD: none provided Past Medical History Reviewed: Historical Data, Nursing Documentation, Vital Signs Vital Signs: Last Vital Signs Temp 97.2 F L 06/12/18 20:15 Pulse 112 H 06/12/18 20:15 Resp 16 06/12/18 20:15 BP 151/86 H 06/12/18 20:15 Pulse Ox 98 06/12/18 20:15 SHYAM Report Viewed: Yes - Medical History PMH: Diabetes, HTN, Hypercholesterolemia - Family History Family History: States: No Known Family Hx - Social History Current smoker - smoking cessation education provided: Yes Alcohol: > 2 Drinks/Day - Home Medications Home Medications: Ambulatory Orders Medication Instructions Recorded No Known Home Med 11/02/17 - Allergies Allergies/Adverse Reactions: Allergies Allergy/AdvReac Type Severity Reaction Status Date / Time No Known Allergies Allergy Verified 06/12/18 20:15 Review of Systems ROS Statement: Except As Marked, All Systems Reviewed And Found Negative Physical Exam - Reviewed Nursing Documentation Reviewed: Yes Vital Signs Reviewed: Yes - Physical Exam Appears: Positive for: Well, Non-toxic, No Acute Distress Head Exam: Positive for: NORMOCEPHALIC. Negative for: ATRAUMATIC (redness and abrasion to forehead) Skin: Positive for: Normal Color, Warm, Dry Eye Exam: Positive for: Normal appearance, EOMI, PERRL Cardiovascular/Chest: Positive for: Regular Rate, Rhythm Respiratory: Positive for: Normal Breath Sounds Neurological/Psych: Positive for: Awake, Alert, Oriented (3x), Other (slurred speech) - ECG O2 Sat by Pulse Oximetry: 98 (RA) Pulse Ox Interpretation: Normal - Critical Care Total Time (In Min): 30 Documented Critical Care: Time excludes all time spent performint seperately billable procedures Medical Decision Making Medical Decision Makin:20 Initial impression: 76 year old male with alcohol intoxication and a head injury Initial plan: Patient is displaying alcohol induced delirium; is not making appropriate decisions for self, is agitated and uncooperative. Medications (haldol and ativan) are ordered for relief of agitation. * CT head w/o contrast * alcohol serum * udip * ativan 2 mg IM once * haldol 5 mg IM * accucheck CT Head shows NAd Patient clinically sober at 6AM for discharge Dx Alcohol Intoxication ScribeAttestation: Documented byAnaya Pickett, acting as a scribe for Claude Hall MD. Provider ScribeAttestation: All medical record entries made by the Scribe were at my direction and personally dictated by me. I have reviewed the chart and agree that the record accurately reflects my personal performance of the history, physical exam, medical decision making, and the department course for this patient. I have also personally directed, reviewed, and agree with the discharge instructions and disposition. Disposition - Clinical Impression Clinical Impression: Alcohol abuse, Alcohol abuse with intoxication delirium, Head injury - Disposition Disposition: Routine/Home Disposition Time: 06:00 Condition: STABLE Instructions: Alcohol Abuse and Alcoholism (DC) Forms: [employer] (Brazilian) Print Language: OCCITAN
[2018-06-13 06:55] VITALS: BP 145/78; PULSE 88; RESP 17
--- NOTE | 2018-06-13 10:35 | CT ---
Date of service: 06/12/2018 PROCEDURE: CT HEAD WITHOUT CONTRAST. HISTORY: head injury COMPARISON: Unenhanced head CT 02/05/2018. TECHNIQUE: Axial computed tomography images were obtained through the head/brain without intravenous contrast. Radiation dose: Total exam DLP = 917.05 mGy-cm. This CT exam was performed using one or more of the following dose reduction techniques: Automated exposure control, adjustment of the mA and/or kV according to patient size, and/or use of iterative reconstruction technique. FINDINGS: HEMORRHAGE: No intracranial hemorrhage. BRAIN: Stable tiny chronic lacune right caudate head best seen in image 18 series 2. Otherwise, good corticomedullary differentiation is seen. Reiterated diffuse cerebral atrophy and chronic microangiopathy. No suspicious extra-axial fluid collection is identified and the midline brain anatomy appears grossly nonfocal as imaged. No mass effect identified. VENTRICLES: Unremarkable. No hydrocephalus. CALVARIUM: Unremarkable. PARANASAL SINUSES: Unremarkable as visualized. No significant inflammatory changes. MASTOID AIR CELLS: Unremarkable as visualized. No inflammatory changes. OTHER FINDINGS: Posttraumatic chronic deformity nasal bones again evident. Phthisis bulbi left globe. IMPRESSION: No definite acute intracranial findings by standard CT criteria. Chronic lacune again seen right caudate head with age-appropriate age related neuro degenerative changes identified. Chronic fracture deformity of the nasal bones reiterated incidentally. Phthisis left globe again evident as well. Preliminary report provided by Rodney, 06/12/2018, 10:50 p.m..
[2018-06-13 20:58] VITALS: O2SAT 98
== END 2018-06-13 06:53 | disposition home or self-care (01) ==
LOC: H.ER 20:12
DX: F10.129 Alcohol abuse with intoxication, unspecified (principal); F10.121 Alcohol abuse with intoxication delirium; S09.90XA Unspecified injury of head, initial encounter; W19.XXXA Unspecified fall, initial encounter; Y92.89 Other specified places as the place of occurrence of the external cause; E11.9 Type 2 diabetes mellitus without complications; E78.00 Pure hypercholesterolemia, unspecified; F17.200 Nicotine dependence, unspecified, uncomplicated; I10 Essential (primary) hypertension
CPT/HCPCS: 70450; 82948; 96372; 99284; G0480; J1630; J2060

== ENCOUNTER 2018-06-17 21:04 | Emergency (ER) | payer MEDICARE, MEDICAID ==
[2018-06-17 21:05] VITALS: BMI 25.0
[2018-06-17 21:17] VITALS: O2SAT 98
--- NOTE | 2018-06-17 22:01 | ED PDOC ---
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 Patient well known to ED and provider for multiple visits for same. Patient denies acute complaints. Past Medical History Reviewed: Historical Data, Nursing Documentation, Vital Signs Vital Signs: Last Vital Signs Temp 97.7 F 06/17/18 21:15 Pulse 93 H 06/17/18 21:15 Resp 16 06/17/18 21:15 BP 149/93 H 06/17/18 21:15 Pulse Ox 98 06/17/18 21:15 - Medical History PMH: Diabetes, HTN, Hypercholesterolemia - Family History Family History: States: Unknown Family Hx - Home Medications Home Medications: Ambulatory Orders Medication Instructions Recorded No Known Home Med 11/02/17 - Allergies Allergies/Adverse Reactions: Allergies Allergy/AdvReac Type Severity Reaction Status Date / Time No Known Allergies Allergy Verified 06/12/18 20:15 Review of Systems ROS Statement: Except As Marked, All Systems Reviewed And Found Negative Physical Exam - Reviewed Nursing Documentation Reviewed: Yes Vital Signs Reviewed: Yes - Physical Exam Appears: Positive for: Well, Non-toxic, No Acute Distress Head Exam: Positive for: ATRAUMATIC, NORMAL INSPECTION, NORMOCEPHALIC Skin: Positive for: Normal Color ENT: Positive for: Normal ENT Inspection Cardiovascular/Chest: Positive for: Regular Rate, Rhythm Respiratory: Positive for: Normal Breath Sounds Back: Positive for: Normal Inspection Extremity: Positive for: Normal ROM Neurological/Psych: Positive for: Awake, Alert, Oriented (x3) - ECG O2 Sat by Pulse Oximetry: 98 - Progress ED Course And Treament: -accucheck 22:45 Patient AAOx3, ambulating steady gait; states he wants to leave Patient requires no further intervention in the ED and is stable for discharge at this time Return precautions given Disposition - Clinical Impression Clinical Impression: Alcohol abuse with uncomplicated intoxication - Patient ED Disposition Is Patient to be Admitted: No Counseled Patient/Family Regarding: Studies Performed, Diagnosis, Need For Followup - Disposition Disposition: Routine/Home Disposition Time: 22:41 Condition: IMPROVED Instructions: Alcohol Abuse and Alcoholism (DC) Print Language: ARMENIAN
[2018-06-18 08:50] VITALS: BP 137/89; PULSE 89; RESP 18; TEMP 97.9
== END 2018-06-17 22:44 | disposition home or self-care (01) ==
LOC: H.ER 21:04
DX: F10.120 Alcohol abuse with intoxication, uncomplicated (principal); E11.9 Type 2 diabetes mellitus without complications; E78.00 Pure hypercholesterolemia, unspecified; I10 Essential (primary) hypertension

== ENCOUNTER 2018-06-22 19:27 | Emergency (ER) | payer MEDICARE, MEDICAID ==
[2018-06-22 19:27] VITALS: BMI 25.0
[2018-06-22 19:36] VITALS: BP 138/72; PULSE 92; RESP 16; TEMP 98; O2SAT 97
--- NOTE | 2018-06-22 20:17 | ED PDOC ---
HPI: Psych/Substance Abuse Time Seen by Provider: 06/22/18 19:52 Chief Complaint (Nursing): Alcohol Ingestion Chief Complaint (Provider): alcohol intoxication Additional Complaint(s): brought by EMS for intoxicated behavior pt known well to ER for alcohol abuse difficult to understand secondary to long-standing speech impediment requesting food but otherwise offers no complaints Past Medical History Reviewed: Historical Data, Nursing Documentation, Vital Signs Vital Signs: Last Vital Signs Temp 98.0 F 06/22/18 19:34 Pulse 92 H 06/22/18 19:34 Resp 16 06/22/18 19:34 BP 138/72 06/22/18 19:34 Pulse Ox 97 06/22/18 19:34 - Medical History PMH: Diabetes, HTN, Hypercholesterolemia - Family History Family History: States: Unknown Family Hx - Social History Alcohol: > 2 Drinks/Day - Home Medications Home Medications: Ambulatory Orders Medication Instructions Recorded No Known Home Med 11/02/17 - Allergies Allergies/Adverse Reactions: Allergies Allergy/AdvReac Type Severity Reaction Status Date / Time No Known Allergies Allergy Verified 06/22/18 19:34 Review of Systems ROS Statement: Except As Marked, All Systems Reviewed And Found Negative Physical Exam - Reviewed Nursing Documentation Reviewed: Yes Vital Signs Reviewed: Yes - Physical Exam Appears: Positive for: No Acute Distress (dissheveled and unkempt) Head Exam: Positive for: ATRAUMATIC, NORMOCEPHALIC Skin: Positive for: Warm, Dry Eye Exam: Positive for: Other (End-stage disease of LEFT orbit) Neck: Positive for: Painless ROM, Supple Cardiovascular/Chest: Positive for: Regular Rate, Rhythm. Negative for: Murmur Respiratory: Positive for: Normal Breath Sounds. Negative for: Respiratory Distress Gastrointestinal/Abdominal: Positive for: Soft. Negative for: Tenderness Extremity: Positive for: Normal ROM. Negative for: Deformity Neurological/Psych: Positive for: Awake, Alert, Mood/Affect (happy affect), Gait (steady), Other (speaking somewhat incomprehensibly but at baseline) - ECG O2 Sat by Pulse Oximetry: 97 Disposition - Clinical Impression Clinical Impression: Alcohol abuse - Disposition Disposition: Routine/Home Disposition Time: 20:00 Condition: STABLE Instructions: Alcohol Abuse and Alcoholism (DC) Print Language: GEORGIAN
== END 2018-06-22 20:17 | disposition home or self-care (01) ==
LOC: H.ER 19:27
DX: F10.10 Alcohol abuse, uncomplicated (principal); E11.9 Type 2 diabetes mellitus without complications; I10 Essential (primary) hypertension

== ENCOUNTER 2018-06-22 21:31 | Emergency (ER) | payer MEDICARE, MEDICAID ==
[2018-06-22 21:31] VITALS: BMI 25.0
[2018-06-22 21:34] VITALS: BP 140/68; PULSE 90; RESP 16; TEMP 97; O2SAT 97
--- NOTE | 2018-06-22 21:53 | ED PDOC ---
HPI: Psych/Substance Abuse Time Seen by Provider: 06/22/18 21:38 Chief Complaint (Nursing): Alcohol Ingestion Chief Complaint (Provider): bizarre behavior Additional Complaint(s): brought in by EMS for evaluation of bizarre behavior pt known well to ER for alcohol abuse and chronic difficulty with speech seen in this ER for alcohol intox earlier pt offers no complaints Past Medical History Reviewed: Historical Data, Nursing Documentation, Vital Signs Vital Signs: Last Vital Signs Temp 97.0 F L 06/22/18 21:32 Pulse 90 06/22/18 21:32 Resp 16 06/22/18 21:32 BP 140/68 06/22/18 21:32 Pulse Ox 97 06/22/18 21:32 - Medical History PMH: Diabetes, HTN, Hypercholesterolemia - Family History Family History: States: Unknown Family Hx - Home Medications Home Medications: Ambulatory Orders Medication Instructions Recorded No Known Home Med 11/02/17 - Allergies Allergies/Adverse Reactions: Allergies Allergy/AdvReac Type Severity Reaction Status Date / Time No Known Allergies Allergy Verified 06/22/18 21:32 Review of Systems ROS Statement: Except As Marked, All Systems Reviewed And Found Negative Physical Exam - Reviewed Nursing Documentation Reviewed: Yes Vital Signs Reviewed: Yes - Physical Exam Appears: Positive for: Non-toxic, No Acute Distress Head Exam: Positive for: ATRAUMATIC, NORMOCEPHALIC Skin: Positive for: Warm, Dry Eye Exam: Positive for: Other (end stage LEFT orbit) Neck: Positive for: Painless ROM, Supple Cardiovascular/Chest: Positive for: Regular Rate, Rhythm. Negative for: Murmur Respiratory: Positive for: Normal Breath Sounds. Negative for: Respiratory Distress Gastrointestinal/Abdominal: Positive for: Soft. Negative for: Tenderness Back: Positive for: Normal Inspection. Negative for: Decreased ROM Extremity: Positive for: Normal ROM. Negative for: Deformity Lymphatic: Negative for: Adenopathy Neurological/Psych: Positive for: Awake, Alert, Oriented, Mood/Affect (normal mood and affect), Gait (steady), Other (known speech impediment, at baseline) - ECG O2 Sat by Pulse Oximetry: 97 Disposition - Clinical Impression Clinical Impression: Alcohol use disorder Counseled Patient/Family Regarding: Studies Performed, Diagnosis - Disposition Disposition: Routine/Home Disposition Time: 21:47 Condition: STABLE Instructions: Alcohol Abuse and Alcoholism (DC) Print Language: [place] ISLANDER
== END 2018-06-22 21:53 | disposition home or self-care (01) ==
LOC: H.ER 21:31
DX: F10.10 Alcohol abuse, uncomplicated (principal); Y90.9 Presence of alcohol in blood, level not specified; E11.9 Type 2 diabetes mellitus without complications; I10 Essential (primary) hypertension

== ENCOUNTER 2018-06-30 20:29 | Emergency (ER) | payer MEDICARE, MEDICAID ==
[2018-06-30 20:29] VITALS: BMI 25.0
--- NOTE | 2018-06-30 20:53 | ED PDOC ---
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 Patient was brought in by EMS for alcohol intoxication. Patient admits to drinking beer today, does not quantify how much. Denies drug use, no injuries. Denies suicidal or homicidal ideation. History is limited by intoxication. PMD: Unknown Past Medical History Reviewed: Historical Data, Nursing Documentation, Vital Signs, Unable To Obtain Vital Signs: Last Vital Signs Temp 98.0 F 06/30/18 20:30 Pulse 88 06/30/18 20:30 Resp 16 06/30/18 20:30 BP 144/70 06/30/18 20:30 Pulse Ox 97 06/30/18 20:30 - Medical History PMH: Diabetes, HTN, Hypercholesterolemia - Family History Family History: States: Unknown Family Hx - Home Medications Home Medications: Ambulatory Orders Medication Instructions Recorded No Known Home Med 11/02/17 - Allergies Allergies/Adverse Reactions: Allergies Allergy/AdvReac Type Severity Reaction Status Date / Time No Known Allergies Allergy Verified 06/30/18 20:30 Review of Systems Review Of Systems: ROS cannot be obtained secondary to pt's inabilty to answer questions. Physical Exam - Reviewed Nursing Documentation Reviewed: Yes Vital Signs Reviewed: Yes - Physical Exam Appears: Positive for: Non-toxic, No Acute Distress. Negative for: Well (Intoxicated appearing) Head Exam: Positive for: ATRAUMATIC, NORMAL INSPECTION, NORMOCEPHALIC Skin: Positive for: Normal Color, Warm, DRY Eye Exam: Positive for: Normal appearance (L eye blind) ENT: Positive for: Normal ENT Inspection Neck: Positive for: Normal, Painless ROM Cardiovascular/Chest: Positive for: Regular Rate, Rhythm Respiratory: Positive for: CNT, Normal Breath Sounds Gastrointestinal/Abdominal: Positive for: Normal Exam, Soft Back: Positive for: Normal Inspection Extremity: Positive for: Normal ROM Neurological/Psych: Positive for: Awake, Alert, Normal Tone. Negative for: Oriented, Motor/Sensory Deficits - ECG O2 Sat by Pulse Oximetry: 97 Pulse Ox Interpretation: Normal Medical Decision Making Medical Decision Makin76 year old with HTN, HLD, DM, ETOH abuse presenting with alcohol intoxication --No trauma, vitals stable, not suicidal --Will allow patient to sober in E.D. --Will check Accu-check 530AM --Patient is awake, alert, steady gait --Stable for discharge Disposition - Clinical Impression Clinical Impression: Alcohol use - Patient ED Disposition Is Patient to be Admitted: No Counseled Patient/Family Regarding: Studies Performed, Diagnosis, Need For Followup - Disposition Disposition: Routine/Home Disposition Time: 05:39 Condition: IMPROVED Instructions: Alcohol Use - When Is Drinking a Problem? Forms: [facility] (Tajik) Print Language: TAMAZIGHT
[2018-07-01 06:51] VITALS: RESP 17
[2018-07-01 06:52] VITALS: BP 129/79; PULSE 83; TEMP 98.1; O2SAT 98
== END 2018-07-01 06:15 | disposition home or self-care (01) ==
LOC: H.ER 20:29
DX: F10.129 Alcohol abuse with intoxication, unspecified (principal); E11.9 Type 2 diabetes mellitus without complications; E78.00 Pure hypercholesterolemia, unspecified; I10 Essential (primary) hypertension

== ENCOUNTER 2018-07-13 23:47 | Emergency (ER) | payer MEDICARE, MEDICAID ==
[2018-07-13 23:47] VITALS: BMI 25.0
[2018-07-13 23:51] VITALS: BP 148/78; PULSE 88; RESP 16; TEMP 98; O2SAT 98
--- NOTE | 2018-07-14 03:58 | ED PDOC ---
HPI: Psych/Substance Abuse Time Seen by Provider: 07/14/18 03:50 Chief Complaint (Nursing): Alcohol Ingestion Chief Complaint (Provider): Alcohol Ingestion ED Caveat: Intoxicated History Per: EMS History/Exam Limitations: intoxication Onset/Duration Of Symptoms: Unknown Current Symptoms Are (Timing): Still Present Modifying Factor(s): Alcohol Additional Complaint(s): 76 y/o male brought in by EMS for public alcohol intoxication. Patient admits to drinking alcohol earlier today. PMD: no provider Past Medical History Reviewed: Historical Data, Nursing Documentation, Vital Signs Vital Signs: Last Vital Signs Temp 98.0 F 07/13/18 23:48 Pulse 88 07/13/18 23:48 Resp 16 07/13/18 23:48 BP 148/78 07/13/18 23:48 Pulse Ox 98 07/13/18 23:48 Primary Care Provider: FAMILY PROVIDER,NO - Medical History PMH: Diabetes, HTN, Hypercholesterolemia - Surgical History Surgical History: No Surg Hx - Family History Family History: States: Unknown Family Hx - Social History Alcohol: > 2 Drinks/Day - Home Medications Home Medications: Ambulatory Orders Medication Instructions Recorded No Known Home Med 11/02/17 - Allergies Allergies/Adverse Reactions: Allergies Allergy/AdvReac Type Severity Reaction Status Date / Time No Known Allergies Allergy Verified 07/13/18 23:48 Review of Systems ROS Statement: Except As Marked, All Systems Reviewed And Found Negative Psych: Positive for: Other (alcohol intoxication) Physical Exam - Reviewed Nursing Documentation Reviewed: Yes Vital Signs Reviewed: Yes - Physical Exam Appears: Positive for: No Acute Distress (but disheveled) Head Exam: Positive for: ATRAUMATIC Skin: Positive for: Normal Color, Warm, Dry Eye Exam: Positive for: Normal appearance Neck: Positive for: Normal Cardiovascular/Chest: Positive for: Regular Rate, Rhythm. Negative for: Murmur Respiratory: Positive for: Normal Breath Sounds. Negative for: Respiratory Distress Extremity: Positive for: Normal ROM Neurological/Psych: Positive for: Awake, Alert, Gait (unsteady), Other (slurred speech). Negative for: Oriented, Motor/Sensory Deficits - ECG O2 Sat by Pulse Oximetry: 98 (RA) Pulse Ox Interpretation: Normal Medical Decision Making Medical Decision Making: Time: 51 Impression: Alcohol Intoxication Plan: -- Will observe until patient is clinically sober. Time: 99 -- Patient endorsed to Dr. Sikand, pending clinical sobriety, re-evaluation and final ER disposition. Scribe Attestation: Documented by Edvin Staton, acting as a scribe Akanksha Hall MD. Provider Scribe Attestation: All medical record entries made by the Scribe were at my direction and personally dictated by me. I have reviewed the chart and agree that the record accurately reflects my personal performance of the history, physical exam, medical decision making, and the department course for this patient. I have also personally directed, reviewed, and agree with the discharge instructions and disposition. Disposition - Disposition
--- NOTE | 2018-07-14 04:04 | ED PDOC ---
HPI: Psych/Substance Abuse Time Seen by Provider: 07/14/18 03:50 Chief Complaint (Nursing): Alcohol Ingestion Chief Complaint (Provider): Alcohol Ingestion ED Caveat: Intoxicated History Per: EMS History/Exam Limitations: intoxication Onset/Duration Of Symptoms: Days Current Symptoms Are (Timing): Still Present Suicide/Self Injury Attempted (Context): None Modifying Factor(s): Alcohol Additional Complaint(s): 76 y/o male brought in by EMS for public alcohol intoxication. Patient admits to drinking alcohol earlier today. PMD: no provider Past Medical History Reviewed: Historical Data, Nursing Documentation, Vital Signs Vital Signs: Last Vital Signs Temp 98.0 F 07/13/18 23:48 Pulse 88 07/13/18 23:48 Resp 16 07/13/18 23:48 BP 148/78 07/13/18 23:48 Pulse Ox 98 07/13/18 23:48 Primary Care Provider: FAMILY PROVIDER,NO - Medical History PMH: Diabetes, HTN, Hypercholesterolemia - Surgical History Surgical History: No Surg Hx - Family History Family History: States: Unknown Family Hx - Social History Alcohol: > 2 Drinks/Day - Home Medications Home Medications: Ambulatory Orders Medication Instructions Recorded No Known Home Med 11/02/17 - Allergies Allergies/Adverse Reactions: Allergies Allergy/AdvReac Type Severity Reaction Status Date / Time No Known Allergies Allergy Verified 07/16/18 18:55 Review of Systems ROS Statement: Except As Marked, All Systems Reviewed And Found Negative Psych: Positive for: Other (alcohol intoxication) Physical Exam - Reviewed Nursing Documentation Reviewed: Yes Vital Signs Reviewed: Yes - Physical Exam Appears: Positive for: No Acute Distress Head Exam: Positive for: ATRAUMATIC, NORMOCEPHALIC Skin: Positive for: Normal Color, Warm, Dry Eye Exam: Positive for: Normal appearance Neck: Positive for: Normal, Painless ROM Cardiovascular/Chest: Positive for: Regular Rate, Rhythm. Negative for: Murmur Respiratory: Positive for: Normal Breath Sounds. Negative for: Respiratory Distress Extremity: Positive for: Normal ROM. Negative for: Deformity Neurological/Psych: Positive for: Awake, Alert, Gait (unsteady), Other (slurred speech). Negative for: Oriented, Motor/Sensory Deficits - ECG O2 Sat by Pulse Oximetry: 98 (RA) Pulse Ox Interpretation: Normal Medical Decision Making Medical Decision Making: Time: 51 Impression: Alcohol intoxication Plan: -- Will observe in the ED until patient is clinically sober Time: 0700 -- Patient will be endorsed to Dr. Hall, pending clinical sobriety, re- evaluation and final ER disposition. __ Scribe Attestation: Documented by Edvin Staton, acting as a scribe Juwan Lawson MD. Provider Scribe Attestation: All medical record entries made by the Scribe were at my direction and pe rsonally dictated by me. I have reviewed the chart and agree that the record accurately reflects my personal performance of the history, physical exam, medical decision making, and the department course for this patient. I have also personally directed, reviewed, and agree with the discharge instructions and disposition. Disposition - Clinical Impression Clinical Impression: Alcohol abuse with intoxication - Patient ED Disposition Is Patient to be Admitted: Transfer of Care - Disposition Disposition: Transfer of Care Disposition Time: 01:00 Condition: STABLE Instructions: Alcohol Use - When Is Drinking a Problem? Forms: [employer] [facility] (New Zealander) Print Language: KAZAKH Patient Signed Over To: Claude Hall Handoff Comments: PENDING CLINICAL SOBRIETY, RE-EVALUATION AND FINAL ER DISPOSITION
--- NOTE | 2018-07-14 04:58 | ED PDOC ---
- ECG O2 Sat by Pulse Oximetry: 98 (RA) Pulse Ox Interpretation: Normal Medical Decision Making Medical Decision Making: Time: 99 -- Patient endorsed to me by Dr. Lawson, pending clinical sobriety and final ER disposition. Time: 636 -- Patient appears clinically sober. Speech is no longer slurred. Patient is awake, alert and oriented (x3) and walking in a straight line. Scribe Attestation: Documented by Edvin Staton, acting as a scribe for Claude Hall MD. Provider Scribe Attestation: All medical record entries made by the Scribe were at my direction and personally dictated by me. I have reviewed the chart and agree that the record accurately reflects my personal performance of the history, physical exam, medical decision making, and the department course for this patient. I have also personally directed, reviewed, and agree with the discharge instructions and disposition. Disposition - Clinical Impression Clinical Impression: Alcohol abuse with intoxication - POA Present On Arrival: None - Disposition Disposition: Routine/Home Disposition Time: 06:37 Condition: STABLE Instructions: Alcohol Use - When Is Drinking a Problem? Forms: [employer] [facility] (Nigerien) Print Language: ESTONIAN
== END 2018-07-14 07:01 | disposition home or self-care (01) ==
LOC: H.ER 23:47
DX: F10.129 Alcohol abuse with intoxication, unspecified (principal); E11.9 Type 2 diabetes mellitus without complications; E78.00 Pure hypercholesterolemia, unspecified; I10 Essential (primary) hypertension
CPT/HCPCS: 82948; 96372; 99283; G0480; J1630; J2060

== ENCOUNTER 2018-07-16 18:53 | Emergency (ER) | payer MEDICARE, MEDICAID ==
[2018-07-16 18:53] VITALS: BMI 25.0
[2018-07-16 19:09] VITALS: TEMP 97
[2018-07-16 23:07] VITALS: RESP 18
--- NOTE | 2018-07-16 23:22 | ED PDOC ---
HPI: Psych/Substance Abuse Time Seen by Provider: 07/16/18 19:09 Chief Complaint (Nursing): Alcohol Ingestion Chief Complaint (Provider): Alcohol Ingestion ED Caveat: Intoxicated History Per: EMS History/Exam Limitations: intoxication Onset/Duration Of Symptoms: Unknown Current Symptoms Are (Timing): Still Present Suicide/Self Injury Attempted (Context): None Modifying Factor(s): Alcohol Additional Complaint(s): 76 y/o male with a PMHx of HTN, HLD, DM and chronic alcoholism brought in by EMS for public alcohol intoxication. As per EMS, patient was found on the ground by PD intoxicated. Patient is known to ED staff and provider for frequent visits and bed malingering. History from patient is limited due to intoxicated state. History provided by EMS. PMD: no provider Past Medical History Reviewed: Historical Data, Nursing Documentation, Vital Signs Vital Signs: Last Vital Signs Temp 97 F L 07/16/18 19:09 Pulse 80 07/16/18 23:06 Resp 18 07/16/18 23:06 BP 107/48 L 07/16/18 23:06 Pulse Ox 97 07/16/18 23:06 Primary Care Provider: Doctor,Conversion - Medical History PMH: Diabetes, HTN, Hypercholesterolemia - Surgical History Surgical History: No Surg Hx - Family History Family History: States: Unknown Family Hx - Social History Alcohol: > 2 Drinks/Day - Home Medications Home Medications: Ambulatory Orders Medication Instructions Recorded No Known Home Med 11/02/17 - Allergies Allergies/Adverse Reactions: Allergies Allergy/AdvReac Type Severity Reaction Status Date / Time No Known Allergies Allergy Verified 07/16/18 18:55 Review of Systems Review Of Systems: ROS cannot be obtained secondary to pt's inabilty to answer questions. (Patient brought in by EMS for public alcohol intoxication) Physical Exam - Reviewed Nursing Documentation Reviewed: Yes Vital Signs Reviewed: Yes - Physical Exam Appears: Positive for: No Acute Distress (intoxicated appearing) Head Exam: Positive for: ATRAUMATIC, NORMOCEPHALIC Skin: Positive for: Normal Color, Warm (Blind left eye), Dry Eye Exam: Positive for: Normal appearance, EOMI, PERRL Neck: Positive for: Normal, Painless ROM Cardiovascular/Chest: Positive for: Regular Rate, Rhythm. Negative for: Murmur Respiratory: Positive for: Normal Breath Sounds. Negative for: Respiratory Distress Gastrointestinal/Abdominal: Positive for: Normal Exam Back: Positive for: Normal Inspection Extremity: Positive for: Normal ROM Neurological/Psych: Positive for: Awake, Alert, Gait (unsteady), Other (slurred speech, alcohol on breath). Negative for: Oriented, Motor/Sensory Deficits - ECG O2 Sat by Pulse Oximetry: 97 (RA) Pulse Ox Interpretation: Normal Medical Decision Making Medical Decision Making: Time: 1926 A/P: 76 y/o male with HTN, HLD, DM and EtOH abuse presenting with alcohol intoxication -- No trauma evident on physical examination. -- Vital signs stable. -- Will observe patient until clinically sober. -- Will obtain accucheck -- Glucose, POC Time: 0200 -- On re-evaluation, patient is sleeping comfortably in bed, in no acute distress. Time: 543 -- On re-evaluation, patient is awake, alert and oriented (x3). On repeat exam, patient is walking with a steady gait. Patient is clinically sober at this time and stable for discharge home. Scribe Attestation: Documented by Edvin Staton, acting as a scribe Fabiola Madrigal MD. Provider Scribe Attestation: All medical record entries made by the Scribe were at my direction and personally dictated by me. I have reviewed the chart and agree that the record accurately reflects my personal performance of the history, physical exam, medical decision making, and the department course for this patient. I have also personally directed, reviewed, and agree with the discharge instructions and disposition. Disposition - Clinical Impression Clinical Impression: Alcohol abuse - Patient ED Disposition Is Patient to be Admitted: No Counseled Patient/Family Regarding: Studies Performed, Diagnosis, Need For Followup - Disposition Referrals: Alcoholics Anonymous [Outside] Disposition: Routine/Home Disposition Time: 05:44 Condition: IMPROVED Instructions: Effects of Alcohol on Your Health Forms: [facility] (Ecuadorean) Print Language: GUYANESE
[2018-07-17 04:29] VITALS: BP 136/82; PULSE 88
[2018-07-17 05:47] VITALS: O2SAT 97
== END 2018-07-17 05:58 | disposition home or self-care (01) ==
LOC: H.ER 18:53
DX: F10.129 Alcohol abuse with intoxication, unspecified (principal); E11.9 Type 2 diabetes mellitus without complications; E78.00 Pure hypercholesterolemia, unspecified; I10 Essential (primary) hypertension; Z00.8 Encounter for other general examination

== ENCOUNTER 2018-08-01 18:39 | Emergency (ER) | payer MEDICARE, MEDICAID ==
[2018-08-01 18:39] VITALS: BMI 25.0
[2018-08-01 18:45] VITALS: BP 128/65; PULSE 92; RESP 18; TEMP 98; O2SAT 99
--- NOTE | 2018-08-01 19:43 | ED PDOC ---
HPI: Psych/Substance Abuse Time Seen by Provider: 08/01/18 18:47 Chief Complaint (Nursing): Alcohol Ingestion Chief Complaint (Provider): Alcohol Ingestion History Per: EMS History/Exam Limitations: no limitations Onset/Duration Of Symptoms: Unknown Current Symptoms Are (Timing): Still Present Modifying Factor(s): Alcohol Additional Complaint(s): 76 y/o male with a history of EtOH and frequent visits to the ED brought in by EMS for evaluation of alcohol intoxication after being found in the street. Patient additionally noted to have had bizarre behavior. Patient left prior to provider interview. PMD: no provider Past Medical History Reviewed: Historical Data, Nursing Documentation, Vital Signs Vital Signs: Last Vital Signs Temp 98.0 F 08/01/18 18:44 Pulse 92 H 08/01/18 18:44 Resp 18 08/01/18 18:44 BP 128/65 08/01/18 18:44 Pulse Ox 99 08/01/18 18:44 Primary Care Provider: FAMILY PROVIDER,NO - Medical History PMH: Diabetes, HTN, Hypercholesterolemia - Surgical History Surgical History: No Surg Hx - Family History Family History: States: Unknown Family Hx - Social History Alcohol: > 2 Drinks/Day - Home Medications Home Medications: Ambulatory Orders Medication Instructions Recorded No Known Home Med 11/02/17 - Allergies Allergies/Adverse Reactions: Allergies Allergy/AdvReac Type Severity Reaction Status Date / Time No Known Allergies Allergy Verified 08/01/18 18:43 Review of Systems ROS Statement: Except As Marked, All Systems Reviewed And Found Negative Psych: Positive for: Other (alcohol intoxication as per by EMS) Physical Exam - Reviewed Nursing Documentation Reviewed: Yes Vital Signs Reviewed: Yes - Physical Exam Comments: unable to assess. - ECG O2 Sat by Pulse Oximetry: 99 (RA) Pulse Ox Interpretation: Normal Medical Decision Making Medical Decision Making: Time: 1857 Impression: Alcohol Intoxication Plan: -- Patient left before being seen. Security cameras reviewed, patient seen ambulating with a steday gait. Scribe Attestation: Documented by Edvin Staton, acting as a scribe Georgina Forte PA-C. Provider Scribe Attestation: All medical record entries made by the Scribe were at my direction and personally dictated by me. I have reviewed the chart and agree that the record accurately reflects my personal performance of the history, physical exam, me dical decision making, and the department course for this patient. I have also personally directed, reviewed, and agree with the discharge instructions and disposition. Disposition - Clinical Impression Clinical Impression: Alcohol abuse - Patient ED Disposition Is Patient to be Admitted: No - Disposition Disposition: Left W/O Being Seen Disposition Time: 18:58 Condition: UNKNOWN Forms: [employer] (Telugu)
== END 2018-08-01 19:03 | disposition left against medical advice (07) ==
LOC: H.ER 18:39
DX: F10.129 Alcohol abuse with intoxication, unspecified (principal); E11.9 Type 2 diabetes mellitus without complications; E78.00 Pure hypercholesterolemia, unspecified; I10 Essential (primary) hypertension